=== PATIENT | female | born 1990 ===

== ENCOUNTER 2018-10-07 15:00 | Emergency (ER) | payer MEDICAID, OTHER ==
[2018-10-07 15:23] VITALS: BMI 32.4
[2018-10-07 15:55] LABS: HEMOGLOBIN 10.9 g/dL (11.0-16.0); MEAN CELL VOLUME 81.6 fL (81.0-99.0); MEAN CORPUSCULAR HEMOGLOBIN 27.2 pg (27.0-31.0); MEAN CORPUSCULAR HGB CONC 33.3 g/dL (33.0-37.0); RBC 4.02 Mil/uL (3.80-5.20); RED CELL DISTRIBUTION WIDTH 15.7 % (11.5-14.5); WHITE BLOOD COUNT 10.8 K/uL (4.8-10.8)
[2018-10-07 16:11] LABS: INR 0.9; PROTHROMBIN TIME 10.2 SECONDS (9.7-12.2)
[2018-10-07 16:15] LABS: SQUAMOUS EPITHIAL 21 /hpf (0-5); URINE BACTERIA OCC (<OCC); URINE BILIRUBIN NEGATIVE (NEGATIVE); URINE BLOOD NEGATIVE (NEGATIVE); URINE CLARITY Hazy (Clear); URINE COLOR Amber (YELLOW); URINE GLUCOSE (UA) NORMAL (Normal); URINE LEUKOCYTE ESTERASE NEG Leu/uL (Negative); URINE PROTEIN 1+ mg/dL (NEGATIVE); URINE UROBILINOGEN NORMAL mg/dL (0.2-1.0)
[2018-10-07 16:16] LABS: ALB/GLOB RATIO 1.2 (1.0-2.1); ALBUMIN 3.5 g/dL (3.5-5.0); ALT/SGPT 19 U/L (9-52); AST/SGOT 23 U/L (14-36); BLOOD UREA NITROGEN 10 mg/dL (7-17); CALCIUM 9.5 mg/dl (8.6-10.4); GFR NON-AFRICAN AMERICAN > 60; URIC ACID 5.9 mg/dL (2.2-7.5)
[2018-10-07 16:23] LABS: CREATININE, RANDOM URINE 205.1 mg/dL
[2018-10-07 21:02] VITALS: BP 117/68; PULSE 69; RESP 20; O2SAT 100
== END 2018-10-07 16:35 | disposition home or self-care (01) ==
LOC: C.EROB 15:00
DX: O26.893 Other specified pregnancy related conditions, third trimester (principal); Z3A.37 37 weeks gestation of pregnancy; R03.0 Elevated blood-pressure reading, without diagnosis of hypertension

== ENCOUNTER 2018-10-22 06:43 | Inpatient (IN) | payer OTHER ==
[2018-10-22] MEDS ORDERED: Sodium Citrate/Citric Acid 15 ml Sol PO ONE (08:30)
[2018-10-22] MEDS: Lactated Ringer's 1,000 ML IV ONE ×2 (08:30→09:20)
[2018-10-22] MEDS ORDERED: cefOXitin IV 2 gm in Dextrose 2 GM/50 ML BAG IVPB ONE ×2 (09:00→10:15)
[2018-10-22 09:09] LABS: BASO # 0.1 K/uL (0.0-0.2); BASO % 0.4 % (0.0-2.0); EOS # 0.1 K/uL (0.0-0.7); EOS % 0.6 % (0.0-4.0); LYMPH # 2.2 K/uL (1.0-4.3); MEAN CELL VOLUME 81.9 fL (81.0-99.0); MEAN CORPUSCULAR HEMOGLOBIN 26.8 pg (27.0-31.0); MEAN CORPUSCULAR HGB CONC 32.7 g/dL (33.0-37.0); MEAN PLATELET VOLUME 10.7 fL (7.2-11.7); MONO # 1.2 K/uL (0.0-0.8); MONO % 8.8 % (0.0-10.0); NEUT # 10.1 K/uL (1.8-7.0); NEUT % 74.2 % (50.0-75.0); RBC 4.11 Mil/uL (3.80-5.20); RED CELL DISTRIBUTION WIDTH 16.2 % (11.5-14.5); WHITE BLOOD COUNT 13.6 K/uL (4.8-10.8)
[2018-10-22 09:22] LABS: SQUAMOUS EPITHIAL 23 /hpf (0-5); URINE BACTERIA FEW (<OCC); URINE BILIRUBIN NEGATIVE (NEGATIVE); URINE BLOOD NEGATIVE (NEGATIVE); URINE CLARITY Hazy (Clear); URINE COLOR Amber (YELLOW); URINE GLUCOSE (UA) NORMAL (Normal); URINE LEUKOCYTE ESTERASE NEG Leu/uL (Negative); URINE PROTEIN 2+ mg/dL (NEGATIVE); URINE UROBILINOGEN NORMAL mg/dL (0.2-1.0)
[2018-10-22 09:23] LABS: INR 0.9; PROTHROMBIN TIME 10.3 SECONDS (9.7-12.2)
[2018-10-22 09:53] LABS: ALB/GLOB RATIO 1.3 (1.0-2.1); ALBUMIN 3.9 g/dL (3.5-5.0); ALT/SGPT 16 U/L (9-52); AST/SGOT 27 U/L (14-36); BLOOD UREA NITROGEN 10 mg/dL (7-17); CALCIUM 9.4 mg/dl (8.6-10.4); GFR NON-AFRICAN AMERICAN > 60; URIC ACID 6.2 mg/dL (2.2-7.5)
[2018-10-22] MEDS ORDERED: Morphine 1 mg/ml preservative-free Inj(Duramorph) ONE (10:13)
[2018-10-22] MEDS ORDERED: ePHEDrine 50 mg/ml Inj ONE (10:13)
[2018-10-22] MEDS ORDERED: Sodium Citrate/Citric Acid 15 ml Sol ONE (10:16)
[2018-10-22] MEDS ORDERED: Oxytocin 20 units in LR 2,000 ML IV ONE (10:16)
[2018-10-22] MEDS ORDERED: Bupivacaine HCl 15 mg/2 ml Spinal Inj ONE (10:33)
[2018-10-22] MEDS ORDERED: Oxytocin 10 Units/ml Inj ONE (11:00)
[2018-10-22] MEDS ORDERED: Erythromycin 0.5% Ophth Oint 1 APPLIC/3.5 G ONE (11:46)
[2018-10-22] MEDS ORDERED: Phytonadione 1 mg/0.5 ml Inj (Neonatal) ONE (11:46)
[2018-10-22] MEDS: Simethicone 80 mg Chewtab PO SCH ×3 (14:11→22:19)
[2018-10-22] MEDS: Oxycodone/Acetaminophen 5/325 mg Tab PO PRN (22:17)
[2018-10-23] MEDS: Oxycodone/Acetaminophen 5/325 mg Tab PO PRN ×3 (06:22→19:46)
[2018-10-23 08:46] LABS: HEMOGLOBIN 10.4 g/dL (11.0-16.0); MEAN CELL VOLUME 81.7 fL (81.0-99.0); MEAN CORPUSCULAR HGB CONC 31.9 g/dL (33.0-37.0); MEAN PLATELET VOLUME 10.2 fL (7.2-11.7); RED CELL DISTRIBUTION WIDTH 16.4 % (11.5-14.5); WHITE BLOOD COUNT 13.3 K/uL (4.8-10.8)
[2018-10-23] MEDS: Prenatal Multivit/Folic Acid/Iron Tab PO SCH (09:39)
[2018-10-23] MEDS: Simethicone 80 mg Chewtab PO SCH ×4 (09:39→21:58)
[2018-10-23] MEDS ORDERED: Bisacodyl 5mg EC Tab PO ONE (11:49)
--- NOTE | 2018-10-23 16:46 | OBPPN ---
Datetime: 10/23/2018 11:07 PP Pain Prov: Within normal limits PP Nausea Prov: Denies PP Flatus Prov: No PP BM Prov: No PP Breasts Prov: Not Done PP Heart Prov: Normal PP Lungs Prov: Normal PP Abdomen/Uterus Prov: Normal PP Lochia Prov: Normal PP Extremities Prov: Abnormal PP C/S Incision Prov: Normal PP Progress Prov: Normal PP Comments Phys Exam Prov: Fundus firm and non-tender. Below Umbilicus Dressing still in place and clean and dry. Will remove it soon. PP Impression Prov: Normal progression PP Plan Prov: Continue present management PP Progress Note Prov: Patient seen and examined at bedside. Per nursing no acute events overnight. Patient is doing well, pain is controlled. Admits to feeling right lower extremity tightness. Lochia is mild. She is ambulating and tolerating diet. Patient denies passing flatus or having a bowel movem ent. Urinating without difficulty. Breast feeding. Denies fevers, chills, nausea/vomiting, headaches, dizziness, cp, palpitations, sob, urinary symptoms. VS: BP 125/85 HR 100 Temp 99.2 I/O 2938/2200 Gen: AAOx3 Abd: Soft, fundus firm, dressing c/d/i Ext: No calf tenderness bilaterally, +lower extremity edema, pedal pulses intact Labs: 13.6>11.0/33.7<180 13.3>10.4/32.7<185 O positive Rubella Immune A/P: Patient is a 28 year old at 39w4d s/p RLTCD POD#1 -Advance diet as tolerated -Pain control with percocet and motrin as needed -Post op hemoglobin is stable -Encourage ambulation and hydration -Encourage breast feeding and incentive spirometer use -Continue routine care -Plan discussed with Dr Gus Moreira DO PGY-2 Pt seen and examined with Dr. Moreira and POC was fully reviewed and agreed upon. IP PP Procedures: None Vital Signs Provider PP: Reviewed; Within Normal Limits
[2018-10-24] MEDS: Oxycodone/Acetaminophen 5/325 mg Tab PO PRN ×2 (01:06→19:51)
[2018-10-24] MEDS: Simethicone 80 mg Chewtab PO SCH ×3 (10:44→21:55)
[2018-10-24] MEDS: Prenatal Multivit/Folic Acid/Iron Tab PO SCH (10:45)
[2018-10-25] MEDS: guaiFENesin DM 200 mg-20 mg/10 ml UD PO PRN ×2 (01:33→10:44)
[2018-10-25 08:40] VITALS: BP 137/93; PULSE 94; RESP 18; TEMP 97.5
[2018-10-25] MEDS: Prenatal Multivit/Folic Acid/Iron Tab PO SCH (10:42)
[2018-10-25] MEDS: Simethicone 80 mg Chewtab PO SCH (10:42)
--- NOTE | 2018-10-25 13:06 | OBPPN ---
Datetime: 10/25/2018 13:03 PP Pain Prov: Within normal limits PP Nausea Prov: Denies PP Flatus Prov: Yes PP BM Prov: Yes PP Breasts Prov: Normal PP Heart Prov: Normal PP Lungs Prov: Normal PP Abdomen/Uterus Prov: Normal PP Lochia Prov: Normal PP Vulva/Perineum Prov: Normal PP CVA Tenderness Prov: Normal PP Extremities Prov: Normal PP C/S Incision Prov: Normal PP Progress Prov: Normal PP Impression Prov: Normal progression PP Plan Prov: Discharge PP Progress Note Prov: normal POD#3 stable for discharge Vital Signs Provider PP: Reviewed; Within Normal Limits
--- NOTE | 2018-10-25 13:06 | OBDCSUM ---
Datetime: 10/25/2018 13:04 Discharged to, Provider: Home Follow up at, Provider: timmy Bartholomew Instr Activity: Normal activity Disch Instr Diet: Regular Discharge Instructions, Provider: Routine instructions given Discharge Diagnosis, Provider: Term Delivered Discharge Time: 10/25/2018 13:04 Follow up in weeks, Provider: 1wk Disch Referrals: None Contraception discussed, Prov: Yes Disch Activity Restrictions: No exercising; No lifting; No driving; No sexual activity; Nothing in v agina - [place], tampons, douche Datetime: 10/07/2018 16:36 Discharge Instructions, Provider: Routine instructions given Discharge Diagnosis, Provider: Term Delivered Contraception discussed, Prov: Yes
[2018-10-25 19:21] VITALS: O2SAT 99
--- NOTE | 2018-10-27 00:52 | OBHP ---
Datetime: 10/07/2018 15:48 IP Adm Impression: Term, intrauterine ; No Active Labor; Intact Membranes IP Admit Plan: Observation/Evaluation Admit Comment, IP Provider: SUBJECTIVE This is a 28 year old at 37 weeks and 6 days with ALEXEI 10/22/18 based off of first trimester ul trasound. Patient's LMP was on 01/22/18. Patient was at clinic this morning when she was told that he r BP was elevated at 140's / 90's, and was told to come in for PIH work-up. Patient sees Dr. Be. Patient otherwise denies headache, chest pain, blurred vision, abdominal pain, and/or cramps. Patien t endorses movement, and denies vaginal discharge and/or vaginal bleeding. PMH: Patient denies Surgical History: 3 years ago, no complications Family History: Father: diabetes, controlled Meds: vitamin Allergies: NKDA Social: Sexually active, denies ETOH, denies Tobacco use, denies recreational drug use OBJECTIVE Vitals: see above Physical Exam: see above ASSESSMENT / PLAN: - Monitor with NST - Labs: PIH work-up -Contiuous Monitoring of FHT's, VS and Uterine activity -No contractions recorded or palpated -No symptoms of PreE. Denies CALLAHAN, BV or Epigastric pain Patient seen and case discussed in detall with Dr. Gus Castle PGY1 Pelvic Type - PN: Adequate Extremities - PN: Normal Abdomen - PN: Normal Back - PN: Normal Breast - PN: Normal Lungs - PN: Normal Heart - PN: Normal Thyroid - PN: Normal Neurologic - PN: Normal HEENT - PN: Normal General - PN: Normal FHR - Baseline A Provider: 150 Membranes, Provider: Intact Contraction Comments Provider: O Gestation - Est Wks by US: 39.4 EGA AdmitDate IP: 37.3 Vital Signs Provider: Reviewed Vital Signs Provider Details: BP slightly elevated at 134/85 IP Chief Complaint: Signs/Symptoms Gestational HTN; evaluation; Other NICHD Variability Prov Fetus A: Moderate 6-25bpm NICHD Accel Fetus A IP Provider: [id number] FHR Category Provider Fetus A: Category I NICHD Decel Fetus A IP Provider: None Genitourinary Exam: Normal DTRs - PN: Normal
--- NOTE | 2018-10-27 00:59 | OBDCSUM ---
Datetime: 10/07/2018 16:36 Disch Instr Activity: Normal activity; Bedrest Disch Activity Restrictions: No exercising; No lifting; Minimize stair-climbing; No sexual activity; Nothing in vagina - [place], tampons, douche Discharge Comment, Provider: SUBJECTIVE: Patient was seen and examined. She remains asymptomatic and denies CALLAHAN, blurred vision, abdominal p ain, or contractions. OBJECTIVE: SVE: cervix closed, high, thick repeat BP readings showed normal blood pressures, PIH labs all within normal limits A/P: Discharge home in stable and Satisfactory condition. Dr. Be notified of negative work up, midly elevated BP's and asymptomatic Most likely Gestational Hypertension Advised to continue to follow with Dr. Be Reeclampsia precautions reviewed with patient and verbalized understanding. Patient seen, examined, and plan discussed with Dr. Gus Good, , PGY-1 I saw and examined this patient with Dr. Good and after full discussion of his assessent and POC, I agreed with his findings and patient was discharged home to folloe up with Haile Turk Contraception after Delivery: Undecided
--- NOTE | 2018-11-11 06:11 | OP ---
PROCEDURE DATE: 10/22/2018 PREOPERATIVE DIAGNOSIS: This is a 28-year-old female at 39 weeks gestation for an elective repeat section with gestational hypertension. POSTOPERATIVE DIAGNOSIS: This is a 28-year-old female at 39 weeks gestation for an elective repeat section with gestational hypertension. PROCEDURE: Primary low transverse section. SURGEON: Isabella Be MD ASSOCIATE PROFESSOR OF ART: Omari Knapp MD TYPE OF ANESTHESIA: Epidural. COMPLICATIONS: None. ESTIMATED BLOOD LOSS: 500 mL. FLUIDS: 1500 mL of LR. URINE OUTPUT: 300 mL of clear urine at the end of procedure. INDICATIONS: A 28-year-old female, 2, para 1, at 39 weeks gestation for elective repeat section with history of gestational hypertension. FINDINGS: in cephalic presentation. Normal uterus, tubes, and ovaries but noted to have some adhesions and lysis of adhesions were performed. score was 9 and 9. DESCRIPTION OF PROCEDURE: The patient was taken to the operating room where an epidural anesthesia was found to be adequate. She was then prepped and draped in normal sterile fashion in a dorsal supine position with a leftward tilt. A Pfannenstiel skin incision was made with the scalpel and carried to the underlying layers of the fascia with the Bovie. The fascia was then excised in the midline and the incision extended laterally with the Klein scissors. The superior aspect of the fascial incision was then grasped with the Roseline clamps, elevated, and the underlying rectus muscle was dissected off bluntly. Attention was then turned to the inferior aspect of the incision, which in a similar fashion was grasped, tented up with the Roseline clamps, and the rectus muscle was dissected off bluntly. The rectus muscles were then in the midline and peritoneum was identified, tented up, and entered sharply with the Metzenbaum scissors. The peritoneal incision was extended superiorly and inferiorly with good visualization of the bladder. The bladder blade was inserted and the vesicouterine peritoneum was identified, grasped with pickups and entered sharply with the Metzenbaum scissors. The incision was extended laterally and the bladder flap was created digitally. The bladder blade was then reinserted and the low uterine segment was incised in a transverse fashion with the scalpel. The uterine incision was then extended laterally with the bandage scissors and the bladder blade was then removed. The infant's head was delivered atraumatically. The nose and mouth were suctioned. The infant was handed off to the awaiting zipper setter. Cord gasses were sent. The placenta was then removed manually and the uterus was exteriorized and cleaned of all clot and debris. The uterine incision was repaired with 1-0 Vicryl in a running locking fashion. A second layer of the same suture was used to obtain excellent hemostasis. The gutters were cleaned of all clots and debris. The uterus was returned back into the abdomen. The peritoneum was closed with 2-0 chromic. The fascia was then reapproximated with 0 Vicryl in a running fashion. The skin was closed with 4-0 Monocryl. The patient tolerated the procedure well. Sponge, lap, and needle counts were correct x2. A 2 g of cefotetan was given 1 hour prior to the cord clamp. The patient was then taken to the recovery room in stable condition and instructed to follow up in the office in approximately two weeks. Isabella Be MD
== END 2018-10-25 13:55 | disposition home or self-care (01) | DRG 651 ==
LOC: C.4D 07:56 → C.4M 15:00
PROVIDERS: ADMIT Obstetrics & Gynecology; ATTEND Obstetrics & Gynecology
PROC: 10D00Z1 Extraction of Products of Conception, Low, Open Approach (ICD-10-PCS; principal; 2018-10-22)
DX: O13.4 Gestational [pregnancy-induced] hypertension without significant proteinuria, complicating childbirth (principal); Z37.0 Single live birth; Z3A.39 39 weeks gestation of pregnancy; O34.211 Maternal care for low transverse scar from previous cesarean delivery; N85.8 Other specified noninflammatory disorders of uterus